=== PATIENT | female | born 1990 | race Caucasian/White ===

== ENCOUNTER 2019-03-08 17:06 | Emergency (ER) | payer SELFPAY ==
[~2019-03-08] VITALS: Ht 160 cm; Wt 86.0 kg
--- NOTE | 2019-03-08 17:13 | NUR ---
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 PT VS WERE TAKEN ON THE FLOOR HR WAS 130-14O AND BP WAS 145/80. PT ON MOWER MECHANIC, HR 100, BP 134/86. EKG DONE. PT STATES HER HR WAS HIGH LIKE THIS 2 DAYS AGO. PT DENIES STRESS, DENIES CP OR SOB. MED STUDENT AT BEDSIDE. MOWER MECHANIC APPLIED.
[2019-03-08 17:36] VITALS: BP 133/85
[2019-03-08 17:49] LABS: BASOPHILS # (AUTO) 0.02 x10^3/uL (0-0.1); BASOPHILS % (AUTO) 0 % (0-1); EOSINOPHILS # (AUTO) 0.16 x10^3/uL (0-0.4); EOSINOPHILS % (AUTO) 2 % (1-7); LYMPHOCYTES # (AUTO) 1.74 x10^3/uL (1-3.4); LYMPHOCYTES % (AUTO) 21 % (22-44); MD NO; MEAN CORPUSCULAR HEMOGLOBIN 32.3 pg (27.0-34.8); MEAN CORPUSCULAR HGB CONC 33.7 g/dL (32.4-35.8); MEAN PLATELET VOLUME 8.9 fL (7.4-10.4); MONOCYTES # (AUTO) 0.38 x10^3/uL (0.2-0.8); MONOCYTES % (AUTO) 5 % (2-9); NEUTROPHILS # (AUTO) 5.97 x10^3/uL (1.8-6.8); NEUTROPHILS % (AUTO) 72 % (42-75); PLATELET COUNT 229 x10^3/uL (130-400); RED BLOOD COUNT 4.51 x10^6/uL (3.82-5.3); RED CELL DISTRIBUTION WIDTH 12.6 % (9.6-15.2)
--- NOTE | 2019-03-08 17:56 | NUR ---
MD AT BEDSIDE DISCUSSING POC.
[2019-03-08 18:00] LABS: ALBUMIN 4.2 g/dL (3.4-5.0); ANION GAP 5 mmol/L (5-15); CALCIUM 9.5 mg/dL (8.5-10.1); CHLORIDE 107 mmol/L (98-107); CREATININE 1.12 mg/dL (0.55-1.02)
[2019-03-08 18:04] LABS: TROPONIN I < 0.015 ng/mL (0.000-0.045)
--- NOTE | 2019-03-08 19:06 | NUR ---
dPatient/Caregiver given discharge instructions and they have confirmed that they understand the instructions. Patient ambulatory with steady gait.
== END 2019-03-08 19:07 | disposition home or self-care (01) ==
LOC: ED 19:01
DX: R00.2 Palpitations (principal)
CPT/HCPCS: 36415; 80048; 82040; 84443; 84484; 84703; 85025; 93005; 99284

== ENCOUNTER → 2019-03-16 | Outpatient (CLI) | payer OTHER | END | disposition home or self-care (01) | LOC: CARD 12:53 | PROVIDERS: ATTEND Emergency Medicine | DX: R00.0 Tachycardia, unspecified (principal); R00.2 Palpitations | CPT/HCPCS: 93225; 93226 ==

== ENCOUNTER 2019-10-16 12:15 | Outpatient (CLI) | payer OTHER ==
[2019-10-16 13:23] VITALS: BP 119/66
== END 2019-10-16 13:15 | disposition home or self-care (01) ==
LOC: LDOP 12:15
PROVIDERS: ATTEND Obstetrics & Gynecology Maternal & Fetal Medicine
DX: O26.893 Other specified pregnancy related conditions, third trimester (principal); R10.9 Unspecified abdominal pain; Z3A.33 33 weeks gestation of pregnancy
CPT/HCPCS: 59025

== ENCOUNTER 2019-11-07 12:12 | Outpatient (CLI) | payer OTHER ==
[~2019-11-07] VITALS: Ht 160 cm; Wt 97.7 kg
[2019-11-07 12:32] VITALS: BP 121/77
[2019-11-07] MEDS ORDERED: PREN1TAB10 PO (13:07)
== END 2019-11-07 13:15 | disposition home or self-care (01) ==
LOC: LDOP 12:12
PROVIDERS: ATTEND Obstetrics & Gynecology Maternal & Fetal Medicine
DX: O42.913 Preterm premature rupture of membranes, unspecified as to length of time between rupture and onset of labor, third trimester (principal); Z3A.36 36 weeks gestation of pregnancy
CPT/HCPCS: 84112; 99211; G0463

== ENCOUNTER → 2019-11-27 | Outpatient (CLI) | payer OTHER ==
[~2019-11-27] MED LIST: PREN1TAB10 PO
== END | disposition home or self-care (01) ==
LOC: STAR 10:40
PROVIDERS: ATTEND Obstetrics & Gynecology
DX: Z01.812 Encounter for preprocedural laboratory examination (principal); Z20.828 Contact with and (suspected) exposure to other viral communicable diseases
CPT/HCPCS: 36415; 87635

== ENCOUNTER 2019-12-01 14:18 | Inpatient (IN) | payer OTHER ==
[~2019-12-01] VITALS: Ht 160 cm; Wt 104.5 kg
[2019-12-05] MEDS ORDERED: D5%-LACTATED RINGERS 1,000 ML IV SCH (20:30)
[2019-12-05] MEDS ORDERED: ONDANSETRON 2MG/ML, 2ML IVPush PRN (20:30)
[2019-12-05] MEDS ORDERED: ALUMINUM/MAG/SIMETHICONE 30 ML UDC PO PRN (20:30)
[2019-12-05] MEDS ORDERED: OXYTOCIN 30U/ 0.9% NaCL 500ML 500 ML IV ONE (20:30)
[2019-12-05] MEDS ORDERED: LACTATED RINGERS 1,000 ML IV SCH (20:30)
[2019-12-05] MEDS ORDERED: TERBUTALINE 1 MG/ML, 1ML IVPush PRN (20:30)
[2019-12-05] MEDS ORDERED: FENTANYL PF 100 MCG/2ML IV PRN (20:30)
[2019-12-05] MEDS ORDERED: CALCIUM CARBONATE 500 MG TAB.CHEW PO PRN (20:30)
[2019-12-05] MEDS ORDERED: SODIUM CHLORIDE FLUSH 10ML SYR IVF PRN (20:30)
[2019-12-05] MEDS ORDERED: MISOPROSTOL 25 MCG TABLET VG PRN (20:30)
[2019-12-05] MEDS ORDERED: TERBUTALINE 1 MG/ML, 1ML SQ PRN (20:30)
[2019-12-05] MEDS ORDERED: OXYTOCIN 30U/ 0.9% NaCL 500ML 500 ML ONE (20:45)
[2019-12-05] MEDS ORDERED: NEWBORN KIT ONE (20:45)
[2019-12-05 20:56] LABS: MEAN CORPUSCULAR HEMOGLOBIN 30.6 pg (27.0-34.8); MEAN CORPUSCULAR HGB CONC 33.2 g/dL (32.4-35.8); MEAN PLATELET VOLUME 8.2 fL (7.4-10.4); PLATELET COUNT 208 x10^3/uL (130-400); RED BLOOD COUNT 3.68 x10^6/uL (3.82-5.3); RED CELL DISTRIBUTION WIDTH 13.5 % (9.6-15.2)
[2019-12-05 21:36] LABS: BASOPHILS # (AUTO) 0.07 x10^3/uL (0-0.1); BASOPHILS % (AUTO) 1 % (0-1); EOSINOPHILS % (AUTO) 1 % (1-7); LYMPHOCYTES # (AUTO) 1.86 x10^3/uL (1-3.4); LYMPHOCYTES % (AUTO) 15 % (22-44); MD SCAN; MONOCYTES # (AUTO) 0.66 x10^3/uL (0.2-0.8); MONOCYTES % (AUTO) 5 % (2-9); NEUTROPHILS # (AUTO) 10.06 x10^3/uL (1.8-6.8); NEUTROPHILS % (AUTO) 79 % (42-75)
[2019-12-05] MEDS ORDERED: MISOPROSTOL 25 MCG TABLET ONE (22:15)
[2019-12-05] MEDS ORDERED: TERBUTALINE 1 MG/ML, 1ML ONE (23:44)
[2019-12-06] MEDS ORDERED: FENTANYL PF 100 MCG/2ML ONE ×3 (05:58→15:53)
[2019-12-06] MEDS: FENTANYL PF 100 MCG/2ML IVPush PRN ×3 (06:01→15:57)
[2019-12-06] MEDS ORDERED: MISOPROSTOL 25 MCG TABLET ONE (06:26)
[2019-12-06] MEDS ORDERED: EPHEDRINE 50 MG/ML, 1ML ONE (17:23)
[2019-12-06] MEDS ORDERED: BUPIVACAINE 0.25% ONE (17:26)
[2019-12-06] MEDS ORDERED: FENTANYL/BUPIV./NS/PF 250 ML EPIDCONT ONE (17:26)
[2019-12-06] MEDS ORDERED: LACTATED RINGERS 1,000 ML IV SCH (17:51)
[2019-12-06] MEDS ORDERED: FENTANYL/BUPIV./NS/PF 250 ML EPIDCONT SCH (17:51)
[2019-12-06] MEDS ORDERED: EPHEDRINE 50 MG/ML, 1ML IVPush PRN (18:00)
[2019-12-06] MEDS ORDERED: LACTATED RINGERS 1,000 ML IVBOLUS PRN (18:00)
[2019-12-06] MEDS ORDERED: OXYTOCIN 30U/ 0.9% NaCL 500ML 500 ML IV PRN (19:39)
[2019-12-06] MEDS ORDERED: TERBUTALINE 1 MG/ML, 1ML ONE (23:39)
[2019-12-06] MEDS ORDERED: METOCLOPRAMIDE 5 MG/ML, 2ML ONE (23:39)
[2019-12-07] MEDS ORDERED: TERBUTALINE 1 MG/ML, 1ML ONE (01:24)
[2019-12-07] MEDS ORDERED: TERBUTALINE 1 MG/ML, 1ML SQ ONE (01:25)
[2019-12-07] MEDS ORDERED: LACTATED RINGERS 1,000 ML IVBOLUS ONE (02:00)
[2019-12-07] MEDS ORDERED: SODIUM CITRATE/CITRIC ACID 30 ML UDC PO ONE (02:00)
[2019-12-07] MEDS ORDERED: AZITHROMYCIN 500 MG in SODIUM CHLORIDE 0.9% 250 ML IV ONE (02:00)
[2019-12-07] MEDS ORDERED: CEFAZOLIN PMX 1GM/50ML 50 ML IVPB ONE (02:00)
[2019-12-07] MEDS ORDERED: METOCLOPRAMIDE 5 MG/ML, 2ML IV ONE (02:00)
[2019-12-07] MEDS ORDERED: LACTATED RINGERS 1,000 ML IV SCH (03:59)
[2019-12-07] MEDS ORDERED: CALCIUM CARBONATE 500 MG TAB.CHEW PO PRN (04:00)
[2019-12-07] MEDS ORDERED: MISOPROSTOL 200 MCG TABLET PR PRN (04:00)
[2019-12-07] MEDS ORDERED: MORPHINE SULFATE 4 MG/ML, 1ML IVPush PRN (04:00)
[2019-12-07] MEDS ORDERED: ONDANSETRON 2MG/ML, 2ML IV PRN (04:00)
[2019-12-07] MEDS ORDERED: morphine SULFATE 10 MG/ML, 1ML IVPush PRN (04:00)
[2019-12-07] MEDS ORDERED: CEFAZOLIN 1,000 MG ONE (04:05)
[2019-12-07] MEDS ORDERED: ONDANSETRON 2MG/ML, 2ML ONE (04:05)
[2019-12-07] MEDS ORDERED: OXYTOCIN 10 UNITS/ML, 1ML ONE (04:05)
[2019-12-07] MEDS ORDERED: HYDROmorphone 2 MG/ML, 1ML ONE (04:06)
[2019-12-07] MEDS ORDERED: FENTANYL PF 100 MCG/2ML ONE (04:06)
[2019-12-07] MEDS ORDERED: LIDOCAINE-MPF 2% ,5ML ONE ×2 (04:07)
[2019-12-07] MEDS ORDERED: MEPERIDINE/PF 100 MG/ML ONE (04:31)
[2019-12-07] MEDS ORDERED: METOPROLOL 1 MG/ML, 5ML ONE (05:01)
[2019-12-07] MEDS ORDERED: KETOROLAC 30 MG/1 ML ONE (05:17)
[2019-12-07] MEDS ORDERED: LABETALOL 5MG/ML, 20ML ONE (05:24)
[2019-12-07] MEDS ORDERED: OXYcodone 5 MG/5 ML ORAL.SOL UDC ONE (05:37)
[2019-12-07] MEDS ORDERED: HYDROmorphone 1 MG/ML, 1ML INJ IVPush PRN (06:00)
[2019-12-07] MEDS ORDERED: OXYcodone 5 MG/5 ML ORAL.SOL UDC PO PRN (06:00)
[2019-12-07] MEDS: OXYTOCIN 30U/ 0.9% NaCL 500ML 500 ML IV SCH ×3 (07:00→23:59)
[2019-12-07] MEDS: LACTATED RINGERS 1,000 ML IV SCH ×3 (07:00→23:59)
[2019-12-07 07:30] VITALS: BP 115/74
[2019-12-07] MEDS: PRENATAL VIT/IRON/FA 1 EACH TABLET PO SCH (09:00)
[2019-12-07] MEDS: OXYcodone/APAP 5/325MG TABLET PO PRN ×4 (10:36→23:38)
[2019-12-07] MEDS: KETOROLAC 30 MG/1 ML IV SCH ×3 (11:36→23:38)
[2019-12-07 11:38] VITALS: BP 103/68
[2019-12-07 12:49] LABS: BASOPHILS # (AUTO) 0.03 x10^3/uL (0-0.1); BASOPHILS % (AUTO) 0 % (0-1); EOSINOPHILS # (AUTO) 0.02 x10^3/uL (0-0.4); EOSINOPHILS % (AUTO) 0 % (1-7); LYMPHOCYTES # (AUTO) 1.69 x10^3/uL (1-3.4); LYMPHOCYTES % (AUTO) 14 % (22-44); MD NO; MEAN CORPUSCULAR HEMOGLOBIN 30.7 pg (27.0-34.8); MEAN CORPUSCULAR HGB CONC 33.3 g/dL (32.4-35.8); MEAN PLATELET VOLUME 8.1 fL (7.4-10.4); MONOCYTES % (AUTO) 5 % (2-9); NEUTROPHILS # (AUTO) 9.46 x10^3/uL (1.8-6.8); NEUTROPHILS % (AUTO) 80 % (42-75); PLATELET COUNT 148 x10^3/uL (130-400); RED BLOOD COUNT 3.01 x10^6/uL (3.82-5.3); RED CELL DISTRIBUTION WIDTH 13.6 % (9.6-15.2)
[2019-12-07 16:54] VITALS: BP 111/76
[2019-12-07 20:16] VITALS: BP 115/81
[2019-12-07 23:51] VITALS: BP 115/80
[2019-12-08] MEDS: OXYcodone/APAP 5/325MG TABLET PO PRN ×5 (04:29→22:28)
[2019-12-08] MEDS: KETOROLAC 30 MG/1 ML IV SCH ×4 (05:42→23:27)
[2019-12-08 07:49] VITALS: BP 107/72
[2019-12-08] MEDS: FERROUS GLUCONATE 324 MG TABLET PO SCH ×2 (08:32→17:46)
[2019-12-08] MEDS: SIMETHICONE 80 MG CHEW TAB PO PRN ×2 (08:32→19:19)
[2019-12-08] MEDS: PRENATAL VIT/IRON/FA 1 EACH TABLET PO SCH (08:32)
[2019-12-08] MEDS: DOCUSATE 100 MG CAPSULE PO PRN (08:32)
[2019-12-08] MEDS: OXYTOCIN 30U/ 0.9% NaCL 500ML 500 ML IV SCH ×2 (09:59→19:59)
[2019-12-08] MEDS: LACTATED RINGERS 1,000 ML IV SCH ×2 (09:59→19:59)
[2019-12-08 19:15] VITALS: BP 122/84
[2019-12-08] MEDS: IBUPROFEN 600 MG TABLET PO PRN (23:30)
[2019-12-08 23:34] VITALS: BP 127/84
[2019-12-09] MEDS: OXYTOCIN 30U/ 0.9% NaCL 500ML 500 ML IV SCH ×2 (02:54→15:59)
[2019-12-09] MEDS: LACTATED RINGERS 1,000 ML IV SCH ×2 (02:54→15:59)
[2019-12-09] MEDS: KETOROLAC 30 MG/1 ML IV SCH (05:30)
[2019-12-09] MEDS: IBUPROFEN 600 MG TABLET PO PRN ×3 (05:33→18:30)
[2019-12-09 07:00] VITALS: BP 124/84
[2019-12-09] MEDS: DOCUSATE 100 MG CAPSULE PO PRN ×2 (07:30→21:21)
[2019-12-09] MEDS: PRENATAL VIT/IRON/FA 1 EACH TABLET PO SCH (07:30)
[2019-12-09] MEDS: SIMETHICONE 80 MG CHEW TAB PO PRN ×2 (07:30→15:49)
[2019-12-09] MEDS: FERROUS GLUCONATE 324 MG TABLET PO SCH ×2 (07:30→18:30)
[2019-12-09] MEDS: OXYcodone/APAP 5/325MG TABLET PO PRN ×4 (08:45→21:22)
[2019-12-09 19:39] VITALS: BP 135/89
[2019-12-10] MEDS: IBUPROFEN 600 MG TABLET PO PRN ×4 (00:22→22:40)
[2019-12-10] MEDS: OXYTOCIN 30U/ 0.9% NaCL 500ML 500 ML IV SCH (01:59)
[2019-12-10] MEDS: LACTATED RINGERS 1,000 ML IV SCH (01:59)
[2019-12-10] MEDS: SIMETHICONE 80 MG CHEW TAB PO PRN ×3 (04:32→18:40)
[2019-12-10] MEDS: OXYcodone/APAP 5/325MG TABLET PO PRN ×4 (04:32→21:42)
[2019-12-10 07:45] VITALS: BP 131/86
[2019-12-10] MEDS: PRENATAL VIT/IRON/FA 1 EACH TABLET PO SCH (07:57)
[2019-12-10] MEDS: DOCUSATE 100 MG CAPSULE PO PRN ×2 (07:58→18:40)
[2019-12-10] MEDS: FERROUS GLUCONATE 324 MG TABLET PO SCH ×2 (07:58→18:40)
[2019-12-10 19:56] VITALS: BP 130/87
[2019-12-11] MEDS: OXYcodone/APAP 5/325MG TABLET PO PRN ×3 (02:55→12:52)
[2019-12-11] MEDS: SIMETHICONE 80 MG CHEW TAB PO PRN ×2 (02:55→10:43)
[2019-12-11] MEDS: IBUPROFEN 600 MG TABLET PO PRN ×2 (04:48→10:43)
[2019-12-11] MEDS ORDERED: IBUP-1222 PO (07:33)
[2019-12-11] MEDS ORDERED: OXYC-302 PO (07:34)
[2019-12-11 08:00] VITALS: BP 128/88
[2019-12-11] MEDS: FERROUS GLUCONATE 324 MG TABLET PO SCH (08:05)
[2019-12-11] MEDS: PRENATAL VIT/IRON/FA 1 EACH TABLET PO SCH (08:05)
[2019-12-11] MEDS: DOCUSATE 100 MG CAPSULE PO PRN (08:05)
== END 2019-12-11 13:30 | disposition home or self-care (01) | DRG 788 ==
LOC: LDIP 12-05 20:01 → 2NW 12-07 07:09
PROVIDERS: ADMIT Obstetrics & Gynecology; ATTEND Obstetrics & Gynecology Maternal & Fetal Medicine
PROC: 10D00Z1 Extraction of Products of Conception, Low, Open Approach (ICD-10-PCS; principal; 2019-12-07)
DX: O76 Abnormality in fetal heart rate and rhythm complicating labor and delivery (principal); O48.0 Post-term pregnancy; O62.1 Secondary uterine inertia; E66.9 Obesity, unspecified; F32.9 Major depressive disorder, single episode, unspecified; O99.214 Obesity complicating childbirth; O99.344 Other mental disorders complicating childbirth; Z37.0 Single live birth; Z3A.41 41 weeks gestation of pregnancy
CPT/HCPCS: 36415; J3490; 85025; 86592; 86850; 86900; G0378; J0456; J0690; J1170; J1885; J2405; J3010; J2175; J2590; J7050; J7120